=== PATIENT | female | born 1975 | race Caucasian/White ===

== ENCOUNTER 2016-12-18 10:22 | Outpatient (CLI) | payer OTHER ==
[~2016-12-18] VITALS: Ht 154.9 cm; Wt 98.8 kg
[2016-12-18] MEDS ORDERED: PREN-93 PO (10:46)
[2016-12-18] MEDS ORDERED: FER325 PO (10:46)
[2016-12-18] MEDS ORDERED: GLYB2.5T2 PO (10:46)
[2016-12-18 10:47] VITALS: BP 117/56; PULSE 87; RESP 18; Ht 154.9 cm; Wt 98.8 kg
[2016-12-18 12:39] LABS: ADD UMIC NO; UR ASCORBIC ACID NEGATIVE (NEGATIVE); UR BILIRUBIN (Dip) NEGATIVE (NEGATIVE); UR BLOOD (Dip) NEGATIVE (NEGATIVE); UR CLARITY CLEAR (CLEAR); UR COLOR YELLOW (YELLOW); UR GLUCOSE (Dip) NEGATIVE (NEGATIVE); UR KETONES (Dip) NEGATIVE (NEGATIVE); UR LEUKOCYTE ESTERASE (Dip) NEGATIVE Leu/ul (NEGATIVE); UR NITRITE (Dip) NEGATIVE (NEGATIVE); UR SPECIFIC GRAVITY (Dip) 1.016 (1.003-1.030); UR TOTAL PROTEIN (Dip) NEGATIVE (NEGATIVE); UR UROBILINOGEN (Dip) NEGATIVE (NEGATIVE)
--- NOTE | 2016-12-18 13:43 | RADRPT ---
PROCEDURE: US Lower extremity Venous. CLINICAL INDICATION: Right leg swelling. TECHNIQUE: Multiple sonographic images of the right lower extremity deep venous system was obtaine d utilizing kay scale, color-flow, compressive sonography and doppler imaging with augmentation. COMPARISON: None. FINDINGS: There is normal compressibility and flow within the right common femoral, femoral and popliteal vein s. Visualized portions of the calf veins are patent. IMPRESSION: No sonographic evidence for deep venous thrombosis in the right leg. RPTAT:AAJJ Kanchan Corado Physician Date Time Electronically viewed and signed by Kanchan Corado Physician on 12/18/2016 13:42 /
--- NOTE | 2016-12-18 14:13 | TRIAGE ---
OB Triage Datetime Report Generated by CPN: 12/18/2016 14:12 Datetime: 12/18/2016 14:00 Stage of : OB Triage Maternal Assessment Level of Consciousness: Fully Conscious Labor Evaluation Frequency: NONE Monitor Mode: External Resting Tone [place]: Relaxed Monitor Mode: ORDERS FOR LIMITED MONITORING Pain Assessment Pain Scale: 0 Pain Goal: 3 Vaginal Exam Membrane Status: Intact Vaginal Bleeding: None Datetime: 12/18/2016 13:00 Stage of : OB Triage Maternal Assessment Level of Consciousness: Fully Conscious Labor Evaluation Frequency: NONE Monitor Mode: External Resting Tone [place]: Relaxed Monitor Mode: ORDERS FOR LIMITED MONITORING Pain Assessment Pain Scale: 0 Pain Goal: 3 Vaginal Exam Membrane Status: Intact Vaginal Bleeding: None Datetime: 12/18/2016 12:00 Stage of : OB Triage Maternal Assessment Level of Consciousness: Fully Conscious Labor Evaluation Frequency: NONE Monitor Mode: External Resting Tone [place]: Relaxed Heart Rate FHR Baseline Rate: 135 Monitor Mode: External US Variability: Moderate 6-25 bpm Accelerations: AGA Decelerations: AGA Pain Assessment Pain Scale: 0 Pain Goal: 3 Vaginal Exam Membrane Status: Intact Vaginal Bleeding: None Datetime: 12/18/2016 11:00 Stage of : OB Triage Maternal Assessment Level of Consciousness: Fully Conscious Labor Evaluation Frequency: NONE Monitor Mode: External Resting Tone [place]: Relaxed Heart Rate FHR Baseline Rate: 140 Monitor Mode: External US Variability: Moderate 6-25 bpm Accelerations: AGA Decelerations: AGA Pain Assessment Pain Scale: 0 Pain Goal: 3 Vaginal Exam Membrane Status: Intact Vaginal Bleeding: None Datetime: 12/18/2016 10:36 Assessment Type: Triage Maternal Assessment Level of Consciousness: Fully Conscious DTR's/Clonus: DTRs 2+; No Clonus Headache: Denies Blurred Vision: No Respiratory Effort: Unlabored; Regular Rhythm; Equal Expansion Breath Sounds, Left: Clear and Equal Breath Sounds, Right: Clear and Equal Nausea/Vomiting: Denies RUQ Epigastric Pain: Denies Lower Extremities Edema: Bilateral Lower Extremities Degree: 2+ Upper Extremities Edema: None Degree: None Facial Edema: None Fall Risk Assessment History of Falling: (0) No Secondary Diagnosis: (0) No Ambulatory Aid: (0) Bedrest/Nurse Assist IV Therapy: (0) No Gait: (0) Normal/Bedrest/Immobile Mental Status: (0) Oriented to Own Ability Fall Score: 0 Fall Risk Score Definition: No Risk: No action required Datetime: 12/18/2016 10:33 Monitor Mode: External Monitor Mode: External US Datetime: 12/18/2016 10:31 Time of Arrival: 12/18/2016 10:18 EGA: 22.4 Arrived By: Wheelchair Arrived From: Home Chief Complaint: PT HERE C/O BLE SWELLING Movement: Present Contractions: Denies/Absent Rupture of Membranes: Denies Vaginal Bleeding: None Vaginal Discharge: Denies Recent Sexual Intercouse: Denies Abdominal Trauma: Not Applicable Patient Complaints: None Time Provider Notified: 12/18/2016 11:05 Provider Notified: TIFFANY Initial Plan: MEASURE ANKLES, AND SERIAL BP'S, UA, VENOUS DOPPLER RLE
--- NOTE | 2016-12-18 18:40 | PN ---
Triage Information Date/Time 12/18/2016 Reason for visit: swelling of both lower extremities and pain in the RT leg , can not push pressure or weight on the RT leg Weeks of Gestation 22 weeks and 4 days /Para Diabetes: none Hypertention: none Additional information 41 years old with IUP at 22 weeks adn 4 days presented with complaint of swelling of both feets since yesterday as well as pain in the RT leg and feet , can not put pressure on the RT leg. Complains as well of Left knee pain as well. Denies any LOf, vaginal bleeding or Decreased movement. Objective Vital Signs Date Time Temp Pulse Resp B/P Pulse Ox O2 Delivery O2 Flow Rate FiO2 12/18/16 10:47 99.5 87 18 117/56 97 Room Air Heart Rate: 130's Contractions: None Exam GA: A&O, NAD Abdomen: Soft, non tender, fundal Height consistent with date Extremities: there is no cord plapable in the left leg. negative César sign in L side. No calf tenderness Equivoal César sign in the RT side. No cord palpable. No calf tenderness, No tenderness in L knee noted there is Bilateral non pitting edema on the both sides, 3 + . RT foot circumference at ankle: 10.5 and Left foot circumference at ankle: 10 inches Results/Medications Results 24 hrs Laboratory Tests Test 12/18/16 10:30 Urine Color YELLOW Urine Clarity CLEAR Urine pH 6.0 Urine Specific [place] 1.016 Urine Ketones NEGATIVE Urine Nitrite NEGATIVE Urine Bilirubin NEGATIVE Urine Urobilinogen NEGATIVE Urine Leukocyte Esterase NEGATIVE Urine Hemoglobin NEGATIVE Urine Glucose NEGATIVE Urine Total Protein NEGATIVE Medications PROCEDURE: US Lower extremity Venous. CLINICAL INDICATION: Right leg swelling. TECHNIQUE: Multiple sonographic images of the right lower extremity deep venous system was obtained utilizing kay scale, color-flow, compressive sonography and doppler imaging with augmentation. COMPARISON: None. FINDINGS: There is normal compressibility and flow within the right common femoral, femoral and popliteal veins. Visualized portions of the calf veins are patent. IMPRESSION: No sonographic evidence for deep venous thrombosis in the right leg. RPTAT:AAJJ Disposition: Discharge Assessment/Plan Bilateral lower extremity symetric edema related to Right log pain, no evidence of DVT in Doppler Patietn was reassure Serial BP in triage normal. UA was negative for protein DC home Follow up in 24-48 hours with her own OB labor precaution and kick counts discussed ZULAY ZAZUETA MD Dec 18, 2016 18:40
== END 2016-12-18 14:05 | disposition home or self-care (01) ==
LOC: OBT 10:22 → L-D 10:22 → OBT 14:05
PROVIDERS: ATTEND Obstetrics & Gynecology
DX: O26.892 Other specified pregnancy related conditions, second trimester (principal); Z3A.22 22 weeks gestation of pregnancy; R22.43 Localized swelling, mass and lump, lower limb, bilateral
CPT/HCPCS: 81003; 93971; Z7500; G0463

== ENCOUNTER 2017-02-10 13:19 | Outpatient (CLI) | payer OTHER ==
[~2017-02-10 13:19] MED LIST: FER325 PO; GLYB2.5T2 PO; PREN-93 PO
--- NOTE | 2017-02-10 14:09 | RADRPT ---
PROCEDURE: Obstetrical ultrasound for biophysical profile CLINICAL INDICATION: Biophysical profile. . TECHNIQUE: Obstetrical ultrasound of the uterus for biophysical profile. Transabdominal views are obtained. COMPARISON: None FINDINGS: Single intrauterine gestation. Presentation: Cephalic. Placenta: Fundal No evidence of placental abruption. No evidence of placenta previa. breathing movement = 2/2 tone = 2/2 motion = 2/2 FORTINO = 2/2 FORTINO = 10.8 cm heart rate: 130 beats per minute IMPRESSION: Single intrauterine gestation. Biophysical profile 10/08 RPTAT: AADD .Taran Mena MD, MD Date Time Electronically viewed and signed by .Taran Mena MD, on 02/10/2017 14:09 .B/
[2017-02-10 14:39] LABS: ADD UMIC YES; UR ASCORBIC ACID 40 mg/dL (NEGATIVE); UR BACTERIA FEW /HPF (NONE SEEN); UR BILIRUBIN (Dip) NEGATIVE (NEGATIVE); UR BLOOD (Dip) 3+ mg/dL (NEGATIVE); UR CLARITY CLOUDY (CLEAR); UR COLOR RED (YELLOW); UR GLUCOSE (Dip) NEGATIVE (NEGATIVE); UR KETONES (Dip) 1+ mg/dL (NEGATIVE); UR LEUKOCYTE ESTERASE (Dip) NEGATIVE Leu/ul (NEGATIVE); UR NITRITE (Dip) NEGATIVE (NEGATIVE); UR RBC > 182 /HPF (0-5); UR SPECIFIC GRAVITY (Dip) 1.021 (1.003-1.030); UR SQUAMOUS EPITHELIAL CELL FEW /HPF (FEW); UR TOTAL PROTEIN (Dip) 2+ mg/dl (NEGATIVE); UR UROBILINOGEN (Dip) NEGATIVE (NEGATIVE)
--- NOTE | 2017-02-10 15:58 | RADRPT ---
PROCEDURE: Retroperitoneal US. CLINICAL INDICATION: Hematuria TECHNIQUE: Multiple sonographic images of the kidneys and retroperitoneum were obtained. The imag es were reviewed on a PACS workstation. COMPARISON: No prior studies are available for comparison. FINDINGS: The kidneys are normal in size, contour, cortical thickness and cortical echogenicity. The right kidney measures 12 cm. The left kidney measures 11.8 cm. No kidney stones are visualized. There is no evidence for hydronephrosis. The urinary bladder is normal. RPTAT: AA IMPRESSION: Unremarkable retroperitoneal ultrasound. .Rick Razo MD, Date Time Electronically viewed and signed by .Rick Razo MD, on 02/10/2017 15:58 .S/
--- NOTE | 2017-02-10 17:23 | TRIAGE ---
OB Triage Datetime Report Generated by CPN: 02/10/2017 17:22 Datetime: 02/10/2017 16:53 Stage of : OB Triage Datetime: 02/10/2017 16:39 Stage of : OB Triage Datetime: 02/10/2017 16:31 Bedside Blood Glucose: 94 Datetime: 02/10/2017 16:11 Stage of : OB Triage Datetime: 02/10/2017 16:09 Labor Evaluation Frequency: 0 Monitor Mode: External Resting Tone [place]: Relaxed Heart Rate FHR Baseline Rate: 125 Monitor Mode: External US Variability: Moderate 6-25 bpm Accelerations: None Decelerations: None Category: Category II Pain Assessment Pain Scale: 0 Pain Presence: None/Denies Pain Goal: 3 Pain Relief Measures: Comfort Measures Datetime: 02/10/2017 15:16 Stage of : OB Triage Datetime: 02/10/2017 15:15 Labor Evaluation Frequency: 0 Monitor Mode: External Pattern: Normal: <= 5 Contractions in 10 Minutes Resting Tone [place]: Relaxed Heart Rate FHR Baseline Rate: 125 Monitor Mode: External US Variability: Moderate 6-25 bpm Accelerations: 10X10 Decelerations: None Category: Category I Pain Assessment Pain Scale: 0 Pain Presence: None/Denies Pain Type: N/A Pain Goal: 3 Pain Relief Measures: Comfort Measures Datetime: 02/10/2017 15:11 Stage of : OB Triage Bedside Blood Glucose: 54 Datetime: 02/10/2017 14:14 Stage of : OB Triage Assessment Type: Triage Maternal Assessment Level of Consciousness: Fully Conscious DTR's/Clonus: DTRs 2+; No Clonus Headache: Denies Blurred Vision: No Respiratory Effort: Unlabored; Regular Rhythm; Equal Expansion Breath Sounds, Left: Clear and Equal Breath Sounds, Right: Clear and Equal Nausea/Vomiting: Denies RUQ Epigastric Pain: Denies Facial Edema: None Temperature Route: Axillary Fall Risk Assessment History of Falling: (0) No Secondary Diagnosis: (0) No Ambulatory Aid: (0) Bedrest/Nurse Assist IV Therapy: (0) No Gait: (0) Normal/Bedrest/Immobile Mental Status: (0) Oriented to Own Ability Fall Score: 0 Fall Risk Score Definition: No Risk: No action required Labor Evaluation Frequency: 0 Monitor Mode: External Quality: Mild Resting Tone [place]: Relaxed Heart Rate FHR Baseline Rate: 125 Monitor Mode: External US Variability: Moderate 6-25 bpm Accelerations: 10X10 Decelerations: None Category: Category I Pain Assessment Pain Scale: 0 Pain Presence: None/Denies Pain Type: N/A Pain Goal: 3 Pain Relief Measures: Comfort Measures Datetime: 02/10/2017 14:13 Time of Arrival: 02/10/2017 13:10 EGA: 30.2 Arrived By: Ambulatory Arrived From: Dr. Office Chief Complaint: REFERRED FROM DR OFFICE FOR NST/BPP, HEMATURIA, A2GDM Movement: Present Contractions: Denies/Absent Rupture of Membranes: Denies Vaginal Discharge: Denies Recent Sexual Intercouse: Denies Abdominal Trauma: Not Applicable Time Provider Notified: 02/10/2017 13:48 Provider Notified: NESS Initial Plan: MONITOR, U/A C_S, BPP/FORTINO Datetime: 02/10/2017 13:48 Stage of : OB Triage Datetime: 12/18/2016 10:36 Fall Score: 0 Fall Risk Score Definition: No Risk: No action required Datetime: 12/18/2016 10:31 EGA: 22.4
--- NOTE | 2017-02-10 19:39 | PN ---
Triage Information Date/Time Reason for visit: hematuria Weeks of Gestation 30 weeks /Para Diabetes: gestational Diabetes management: oral agent Hypertention: none Objective Heart Rate: 120's Heart Rate Comments Category I Contractions: None Results/Medications Results 24 hrs Laboratory Tests Test 02/10/17 13:50 02/10/17 15:09 02/10/17 16:33 Urine Color RED Urine Clarity CLOUDY A Urine pH 6.0 Urine Specific [place] 1.021 Urine Ketones 1+ H Urine Nitrite NEGATIVE Urine Bilirubin NEGATIVE Urine Urobilinogen NEGATIVE Urine Leukocyte Esterase NEGATIVE Urine Microscopic RBC > 182 H Urine Microscopic WBC > 182 H Urine Squamous Epithelial Cells FEW Urine Bacteria FEW A Urine Hemoglobin 3+ H Urine Glucose NEGATIVE Urine Total Protein 2+ H Bedside Glucose 54 L 94 Imaging Results Renal ultrasound normal BPP 10/08 Disposition: Discharge Assessment/Plan Patient is to follow up in her clinic in 2 days for further evaluation. INGRIS ARZOLA MD Feb 10, 2017 19:39
== END 2017-02-10 17:05 | disposition home or self-care (01) ==
LOC: OBT 13:19 → L-D 13:19 → OBT 17:05
PROVIDERS: ATTEND Obstetrics & Gynecology
DX: O26.893 Other specified pregnancy related conditions, third trimester (principal); Z3A.30 30 weeks gestation of pregnancy; R31.9 Hematuria, unspecified
CPT/HCPCS: 76775; 76818; 81001; 82962; 87086; Z7500; G0463

== ENCOUNTER 2017-04-11 11:01 | Inpatient (IN) | END 2017-04-14 14:52 | disposition home or self-care (01) | DRG 766 ==